=== PATIENT | female | born 1940 | race Caucasian/White ===

== ENCOUNTER → 2016-10-17 | Outpatient (REF) | payer MEDICARE | LOC: M SFHCLERA 14:20 | PROVIDERS: ATTEND Physician Assistant | DX: R30.0 Dysuria (principal) | CPT/HCPCS: 81002; 87088; 87186; G0463 ==

== ENCOUNTER → 2017-01-11 | Outpatient (CLI) | payer MEDICARE ==
--- NOTE | 2017-01-11 13:53 | REPMRS ---
Patient History The patient states she had a clinical breast exam in 03/28 Patient is postmenopausal. No known family history of cancer. Digital Woman Screen Mammo: January 11, 2017 - Exam #: [id number] Bilateral CC and MLO view(s) were taken. Technologist: Cindy Petersen, Technologist Prior study comparison: November 15, 2014, digital woman screen mammo performed at [facility] to [facility]. November 06, 2013, digital woman screen mammo performed at [facility] to [facility]. FINDINGS: There are scattered fibroglandular densities. There has been no change in the appearance of the mammogram from the prior studies. There is a mild amount of residual fibroglandular tissue which is fairly symmetric. There is no interval development of dominant mass, architectural distortion, or clustered microcalcification suggestive of malignancy. ASSESSMENT: BI-RADS/ACR category 1 mammogram. Negative. Recommendation Routine screening mammogram in 1 year (for women over age 40). This mammogram was interpreted with the aid of an FDA-approved computer-aided dectection system. Electronically Signed By: Michelet Gannon MD 01/11/17 3607
== END ==
LOC: M WHC 12:50
PROVIDERS: ATTEND Family Medicine
DX: Z12.31 Encounter for screening mammogram for malignant neoplasm of breast (principal); Z78.0 Asymptomatic menopausal state

== ENCOUNTER → 2017-03-08 | Outpatient (CLI) | payer MEDICARE ==
[2017-03-08 14:24] LABS: MEAN CORPUSCULAR HEMOGLOBIN 32.1 pg (27.0-33.0); MEAN CORPUSCULAR HGB CONC 33.3 g/dl (32.0-36.5); MEAN CORPUSCULAR VOLUME 96.4 fl (80.0-96.0); RED CELL DISTRIBUTION WIDTH 12.9 % (11.5-14.5); WHITE BLOOD COUNT 7.3 K/mm3 (4.0-10.0)
[2017-03-08 15:38] LABS: ALBUMIN 3.7 GM/DL (3.2-5.2); ALBUMIN/GLOBULIN RATIO 1.19 (1.00-1.93); ALKALINE PHOSPHATASE 74 U/L (45-117); ALT/SGPT 22 U/L (12-78); ANION GAP 4 MEQ/L (8-16); AST/SGOT 18 U/L (15-37); BILIRUBIN,TOTAL 0.3 MG/DL (0.2-1.0); BLOOD UREA NITROGEN 18 MG/DL (7-18); CALCIUM LEVEL 9.1 MG/DL (8.8-10.2); CARBON DIOXIDE LEVEL 28 MEQ/L (21-32); CHLORIDE LEVEL 109 MEQ/L (98-107); CREATININE FOR GFR 0.92 MG/DL (0.55-1.02); GLOMERULAR FILTRATION RATE > 60.0 (>39); GLUCOSE, FASTING 133 MG/DL (83-110); POTASSIUM SERUM 3.8 MEQ/L (3.5-5.1); SODIUM LEVEL 141 MEQ/L (136-145); TOTAL PROTEIN 6.8 GM/DL (6.4-8.2)
[2017-03-10 00:06] LABS: Lyme Disease IgG/IgM Antibodie <0.91 ISR (0.00-0.90); Lyme Disease IgM Ab Quantitati <0.80 index (0.00-0.79)
== END ==
LOC: M LAB 13:49
PROVIDERS: ATTEND Family Medicine
DX: D64.9 Anemia, unspecified (principal); R53.83 Other fatigue

== ENCOUNTER → 2017-03-23 | Outpatient (CLI) | payer MEDICARE ==
--- NOTE | 2017-03-23 17:20 | REP ---
Chest x-ray: Two views: History: Hypertension. Findings: Comparison radiographs are from 10/14/2015. The lungs are symmetrically aerated and free of infiltrate. Pleural angles are sharp. Cardiomediastinal silhouette is unremarkable and unchanged. The aorta is calcific and a little tortuous. Pulmonary vasculature is not increased. No significant bony abnormality is seen. There are two or three old healed rib fractures noted along the left posterolateral chest wall. Impression: No active disease. Signed by Sammy Chavez MD 03/24/2017 09:23 A
--- NOTE | 2017-03-23 23:16 | ECGEPIP ---
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 No significant change compared with 05/02/2015. Electronically Signed On 03-23-2017 23:16:12 EDT by Zechariah Lala
== END ==
LOC: M EKG 15:01
PROVIDERS: ATTEND Family Medicine
DX: I10 Essential (primary) hypertension (principal)

== ENCOUNTER → 2017-11-23 | Outpatient (REF) | payer MEDICARE, OTHER | LOC: M SFHCLERA 14:13 | DX: R39.9 Unspecified symptoms and signs involving the genitourinary system (principal) | CPT/HCPCS: 87086 ==

== ENCOUNTER → 2018-03-30 | Outpatient (REF) | payer MEDICARE ==
[2018-03-30 13:50] LABS: APPEARANCE, URINE HAZY (CLEAR); BACTERIA, URINE AUTO NEGATIVE (NEGATIVE); BILIRUBIN, URINE AUTO NEGATIVE (NEGATIVE); BLOOD, URINE BLOOD NEGATIVE (NEGATIVE); CALCIUM OXALATE CRYSTALS LARGE; COLOR, URINE YELLOW (YELLOW); GLUCOSE, URINE (UA) AUTO NEGATIVE (NEGATIVE); KETONE, URINE AUTO NEGATIVE (NEGATIVE); LEUKOCYTE ESTERASE, URINE AUTO NEGATIVE (NEGATIVE); MUCUS, URINE SMALL (NEGATIVE); NITRITE, URINE AUTO NEGATIVE (NEGATIVE); PROTEIN, URINE AUTO NEGATIVE (NEGATIVE); RBC, URINE AUTO 16 /HPF (0-3); SPECIFIC GRAVITY URINE AUTO 1.018 (1.002-1.035); SQUAMOUS EPITHELIAL CELL UR AU 0 /HPF (0-6); UROBILINOGEN, URINE AUTO 0.2 mg/dL (0.0-2.0); WBC, URINE AUTO 2 /HPF (0-3)
== END ==
LOC: M LAB REF 13:09
DX: N32.81 Overactive bladder (principal); R39.9 Unspecified symptoms and signs involving the genitourinary system
CPT/HCPCS: 81001

== ENCOUNTER → 2018-03-30 | Outpatient (CLI) | payer MEDICARE ==
[2018-03-30 07:37] LABS: HEMATOCRIT 41.7 % (36.0-47.0); HEMOGLOBIN 13.6 g/dl (12.0-15.5); MEAN CORPUSCULAR HEMOGLOBIN 31.2 pg (27.0-33.0); MEAN CORPUSCULAR HGB CONC 32.6 g/dl (32.0-36.5); MEAN CORPUSCULAR VOLUME 95.6 fl (80.0-96.0); PLATELET COUNT, AUTOMATED 353 10^3/uL (150-450); RED BLOOD COUNT 4.36 10^6/uL (4.00-5.40); RED CELL DISTRIBUTION WIDTH 12.5 % (11.5-14.5); WHITE BLOOD COUNT 7.7 10^3/uL (4.0-10.0)
[2018-03-30 08:10] LABS: ALBUMIN 3.6 GM/DL (3.2-5.2); ALBUMIN/GLOBULIN RATIO 1.09 (1.00-1.93); ALKALINE PHOSPHATASE 80 U/L (45-117); ALT/SGPT 20 U/L (12-78); ANION GAP 7 MEQ/L (8-16); AST/SGOT 16 U/L (7-37); BILIRUBIN,TOTAL 0.4 MG/DL (0.2-1.0); BLOOD UREA NITROGEN 15 MG/DL (7-18); CALCIUM LEVEL 8.8 MG/DL (8.8-10.2); CARBON DIOXIDE LEVEL 29 MEQ/L (21-32); CHLORIDE LEVEL 106 MEQ/L (98-107); CHOLESTEROL LEVEL 224 MG/DL (<200); CHOLESTEROL RISK RATIO 4.869 (<5); CREATININE FOR GFR 0.85 MG/DL (0.55-1.30); GLOMERULAR FILTRATION RATE > 60.0 (>39); GLUCOSE, FASTING 89 MG/DL (70-100); HDL CHOLESTEROL 46 MG/DL (>40); IRON (FE) 71 UG/DL (50-170); LDL CHOLESTEROL 147.2 MG/DL (<100); NON-HDL-C 178 MG/DL; PERCENT SATURATION 31.1 % (13.2-45.0); POTASSIUM SERUM 3.6 MEQ/L (3.5-5.1); SODIUM LEVEL 142 MEQ/L (136-145); THYROXINE (T4) 7.8 UG/DL (4.5-12.0); TOTAL IRON BINDING CAPACITY 228 UG/DL (250-450); TOTAL PROTEIN 6.9 GM/DL (6.4-8.2); TRIGLYCERIDES LEVEL 154 MG/DL (<150)
[2018-03-30 08:43] LABS: TOTAL 25(OH) VITAMIN D 66.8 NG/ML (30.0-100.0); TOTAL T3 81.2 NG/DL (60.0-181.0)
[2018-03-30 09:10] LABS: ESTIMATED AVERAGE GLUCOSE 117 MG/DL (60-110); HEMOGLOBIN A1c 5.7 %
== END ==
LOC: M LAB 06:54
DX: I10 Essential (primary) hypertension (principal); R53.83 Other fatigue; E03.9 Hypothyroidism, unspecified; Z79.899 Other long term (current) drug therapy
CPT/HCPCS: 83550

== ENCOUNTER → 2018-07-25 | Outpatient (REF) | payer MEDICARE, OTHER | LOC: M SFHCLERA 18:18 | DX: R30.0 Dysuria (principal) | CPT/HCPCS: 87186 ==

== ENCOUNTER → 2018-11-07 | Outpatient (CLI) | payer MEDICARE ==
--- NOTE | 2018-11-08 08:08 | REPMRS ---
Patient History The patient states she has not had a clinical breast exam in over a year. No known family history of cancer. Digital Woman Screen Mammo: November 07, 2018 - Exam #: [id number] Bilateral CC and MLO view(s) were taken. Technologist: Cindy Petersen, Technologist Prior study comparison: January 11, 2017, digital woman screen mammo performed at [facility]. November 15, 2014, digital woman screen mammo performed at [facility]. November 06, 2013, digital woman screen mammo performed at [facility]. FINDINGS: There are scattered fibroglandular densities. There has been no change in the appearance of the mammogram from the prior studies. There is a mild amount of scattered fibroglandular density which is fairly symmetric. There is no interval development of dominant mass, architectural distortion, or clustered microcalcification suggestive of malignancy. 3-D tomosynthesis shows no additional findings. Assessment: BI-RADS/ACR category 1 mammogram. Negative Mammogram. Recommendation Routine screening mammogram of both breasts in 1 year (for women over age 40). This patient's Lifetime Breast Cancer RIsk is estimated at 3.1 %. This mammogram was interpreted with the aid of an FDA-approved computer-aided dectection system. Electronically Signed By: Javier Chavez MD 11/08/18 0808
== END ==
LOC: M WHC 09:15
PROVIDERS: ATTEND Family Medicine
DX: Z12.31 Encounter for screening mammogram for malignant neoplasm of breast (principal)

== ENCOUNTER → 2019-10-09 | Outpatient (REF) | payer MEDICARE ==
[2019-10-09 19:32] LABS: APPEARANCE, URINE CLEAR (CLEAR); BACTERIA, URINE AUTO NEGATIVE (NEGATIVE); BILIRUBIN, URINE AUTO NEGATIVE (NEGATIVE); BLOOD, URINE BLOOD NEGATIVE (NEGATIVE); COLOR, URINE YELLOW (YELLOW); GLUCOSE, URINE (UA) AUTO NEGATIVE (NEGATIVE); KETONE, URINE AUTO NEGATIVE (NEGATIVE); LEUKOCYTE ESTERASE, URINE AUTO NEGATIVE (NEGATIVE); MUCUS, URINE SMALL (NEGATIVE); NITRITE, URINE AUTO NEGATIVE (NEGATIVE); PROTEIN, URINE AUTO NEGATIVE (NEGATIVE); RBC, URINE AUTO 8 /HPF (0-3); SPECIFIC GRAVITY URINE AUTO 1.018 (1.002-1.035); SQUAMOUS EPITHELIAL CELL UR AU 0 /HPF (0-6); URIC ACID CRYSTALS SMALL; UROBILINOGEN, URINE AUTO 0.2 mg/dL (0.0-2.0); WBC, URINE AUTO 1 /HPF (0-3)
== END ==
LOC: M LAB REF 17:16
PROVIDERS: ATTEND Obstetrics & Gynecology
DX: N81.11 Cystocele, midline (principal)

== ENCOUNTER → 2019-12-19 | Outpatient (CLI) | payer MEDICARE ==
[2019-12-19 09:36] LABS: HEMATOCRIT 42.5 % (36.0-47.0); HEMOGLOBIN 13.6 g/dl (12.0-15.5); MEAN CORPUSCULAR HEMOGLOBIN 30.5 pg (27.0-33.0); MEAN CORPUSCULAR VOLUME 95.3 fl (80.0-96.0); PLATELET COUNT, AUTOMATED 366 10^3/uL (150-450); RED BLOOD COUNT 4.46 10^6/uL (4.00-5.40); WHITE BLOOD COUNT 7.8 10^3/uL (4.0-10.0)
[2019-12-19 09:47] LABS: INR 1.1; PROTHROMBIN TIME 13.9 SECONDS (11.8-14.0)
[2019-12-19 10:25] LABS: HEMOGLOBIN A1c 5.5 %
[2019-12-19 10:30] LABS: ALBUMIN 4.1 GM/DL (3.2-5.2); ALT/SGPT 20 U/L (12-78); BILIRUBIN,TOTAL 0.4 MG/DL (0.2-1.0); BLOOD UREA NITROGEN 18 MG/DL (7-18); CALCIUM LEVEL 9.7 MG/DL (8.8-10.2); CARBON DIOXIDE LEVEL 31 MEQ/L (21-32); CHLORIDE LEVEL 107 MEQ/L (98-107); CHOLESTEROL LEVEL 269 MG/DL (<200); CREATININE FOR GFR 0.89 MG/DL (0.55-1.30); GLOMERULAR FILTRATION RATE > 60.0 (>39); GLUCOSE, FASTING 100 MG/DL (70-100); HDL CHOLESTEROL 41 MG/DL (>40); LDL CHOLESTEROL 191 MG/DL (<100); NON-HDL-C 228 MG/DL; POTASSIUM SERUM 4.2 MEQ/L (3.5-5.1); SODIUM LEVEL 139 MEQ/L (136-145); THYROID STIMULATING HORMONE 0.574 uIU/ML (0.358-3.740); TOTAL PROTEIN 7.5 GM/DL (6.4-8.2); TRIGLYCERIDES LEVEL 185 MG/DL (<150)
--- NOTE | 2019-12-19 10:31 | ECGEPIP ---
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 No significant change from 04/05/19. Electronically Signed on 12-19-2019 10:31:00 EDT by Dario Loving
--- NOTE | 2019-12-19 10:34 | REP ---
CHEST, TWO VIEWS: Two views of the chest are performed and compared to a prior study of 04/05/2019. There is no acute infiltrate. There is mild bibasilar fibroatelectatic change. Heart is normal in size. There is mild calcification and tortuosity of the thoracic aorta. Mediastinal silhouette is unchanged. IMPRESSION: No active pulmonary disease. Electronically Signed by Michelet Gannon MD 12/19/2019 10:38 A
== END ==
LOC: M LAB 09:09
PROVIDERS: ATTEND Family Medicine
DX: Z01.818 Encounter for other preprocedural examination (principal); I10 Essential (primary) hypertension

== ENCOUNTER → 2020-01-15 | Outpatient (CLI) | payer MEDICARE ==
[~2020-01-15] MED LIST: ACET-839 PO; ALEV220T22 PO; CALC600T36 PO; EFFE150C2 PO; LEVO88TA3 PO; MULTCAP PO; OMEP1CAP73 PO; OSTE5TAB PO; VALS1TAB66 PO
== END ==
LOC: M LABSMTC 11:46
PROVIDERS: ATTEND Anesthesiology
DX: Z11.59 Encounter for screening for other viral diseases (principal)

== ENCOUNTER → 2020-01-15 | Outpatient (CLI) | payer MEDICARE ==
--- NOTE | 2020-01-15 15:05 | REP ---
PELVIC SONOGRAPHY: HISTORY: Urinary frequency. Midline cystocele. SONOGRAPHIC FINDINGS: Transabdominal and transvaginal scanning are performed. Uterine dimensions are normal measured at 6.1 x 2.4 x 3.3 cm. Endometrial echo 0.4 cm in thickness. No focal uterine mass is seen. There is some uterine myometrial calcification consistent with fibroid change. No free fluid is seen. The right ovary is surgically absent. The left ovary could not be visualized either transabdominally or transvaginally. No left adnexal mass is seen. No free fluid is noted. Visualized bladder suarez are smooth. No extra vesicle lesion is seen. IMPRESSION: Calcifications in the uterine myometrium consistent with some fibroid change. Status post right oophorectomy. Left ovary not directly visualized. Electronically Signed by Sammy Chavez MD 01/15/2020 03:23 P
== END ==
LOC: M LRY 13:29
PROVIDERS: ATTEND Obstetrics & Gynecology
DX: N81.11 Cystocele, midline (principal); Z90.721 Acquired absence of ovaries, unilateral

== ENCOUNTER 2020-01-18 06:04 | Day surgery (SDC) | payer MEDICARE ==
[~2020-01-18] VITALS: Ht 152.4 cm; Wt 60.2 kg
[2020-01-18 06:58] LABS: HEMATOCRIT 43.4 % (36.0-47.0); MEAN CORPUSCULAR HEMOGLOBIN 30.4 pg (27.0-33.0); MEAN CORPUSCULAR HGB CONC 32.3 g/dl (32.0-36.5); MEAN CORPUSCULAR VOLUME 94.1 fl (80.0-96.0); PLATELET COUNT, AUTOMATED 385 10^3/uL (150-450); RED BLOOD COUNT 4.61 10^6/uL (4.00-5.40); WHITE BLOOD COUNT 9.1 10^3/uL (4.0-10.0)
[2020-01-18] MEDS ORDERED: ceFAZolin SOD 2 GM in IV 1 EA IV ONE (07:00)
[2020-01-18] MEDS ORDERED: LR 1,000 ML IV ONE (07:00)
[2020-01-18] MEDS ORDERED: VASOPRESSIN INJ 20 UNITS/ML VIAL As Ordered ONE (07:14)
[2020-01-18] MEDS ORDERED: propofoL 200 MG/20 ML VIAL As Ordered ONE (07:18)
[2020-01-18] MEDS ORDERED: MIDAZOLAM INJ 2MG/2ML VIAL (J2250 PER 1MG) As Ordered ONE (07:18)
[2020-01-18] MEDS ORDERED: ROCURONIUM BROMIDE 50 MG/5 ML VIAL As Ordered ONE (07:18)
[2020-01-18] MEDS ORDERED: LIDOCAINE 2% 100MG/5ML SDV (FOR ANES.) As Ordered ONE (07:18)
[2020-01-18] MEDS ORDERED: fentaNYL 100 MCG/2 ML INJECTION (J3010) As Ordered ONE (07:19)
[2020-01-18] MEDS ORDERED: KETOROLAC 60 MG/2 ML VIAL As Ordered ONE (08:12)
[2020-01-18] MEDS ORDERED: ACETAMINOPHEN 1000MG 100ML IV BTL (OFIRMEV) (J0131 PER 10MG) As Ordered ONE (08:12)
[2020-01-18] MEDS ORDERED: dexameTHASONE 4 MG/ML 1ML VIAL (J1100 PER 1MG) As Ordered ONE (08:12)
[2020-01-18] MEDS ORDERED: ONDANSETRON 4MG/2ML VIAL As Ordered ONE (08:12)
[2020-01-18] MEDS ORDERED: SUCCINYLCHOLINE 100 MG/5 ML SYRINGE (J0330) As Ordered ONE (08:14)
[2020-01-18] MEDS ORDERED: SUGAMMADEX SODIUM 500 MG/5 ML VIAL (BRIDION) As Ordered ONE (09:06)
[2020-01-18] MEDS ORDERED: LR 1,000 ML IV SCH ×2 (10:00)
[2020-01-18] MEDS ORDERED: fentaNYL 100 MCG/2 ML INJECTION (J3010) IV PRN (10:00)
[2020-01-18] MEDS ORDERED: NORCO, ANEXSIA 5/325MG TABLET (HYDROcodone/ACETAMINOPHEN) PO PRN (10:00)
[2020-01-18] MEDS ORDERED: oxyCODONE 5MG TAB PO PRN (10:00)
[2020-01-18] MEDS ORDERED: IBUPROFEN 600 MG TAB PO PRN (10:00)
[2020-01-18] MEDS ORDERED: ONDANSETRON 4MG/2ML VIAL IV PRN (10:00)
[2020-01-18 12:20] VITALS: BP 153/70
--- NOTE | 2020-01-21 12:33 | RO ---
DATE OF SURGERY: 01/18/2020 PREOPERATIVE DIAGNOSES AND INDICATION FOR SURGERY: Symptomatic prolapse, failed pessary, stress urinary incontinence (CEDRIC), and intrinsic sphincter deficiency (ISD). POSTOPERATIVE DIAGNOSES: Symptomatic prolapse, failed pessary, stress urinary incontinence (CEDRIC), and intrinsic sphincter deficiency (ISD). PROCEDURE: LeFort colpocleisis, Desara midurethral sling, and cysto. SURGEON: Noa Ramírez MD CONVEYOR TECHNICIAN: None. ANESTHESIA: General endotracheal anesthesia. BRIEF DESCRIPTION OF PROCEDURE AND FINDINGS: Tameka was brought to the operating room, where sufficient general endotracheal anesthesia was induced. She was prepped, draped, and positioned in the usual sterile fashion. Of course, the pessary was removed before the prep. The bladder was emptied, and attention was turned to the vaginal tissue. She had more anterior prolapse than posterior, as expected. The patient was aware of this preoperatively. We used Allis clamps to grasp the superior vagina to point anteriorly and to point posteriorly and injected with diluted vasopressin and then dissected out a squared-off peninsula of tissues starting anteriorly across the top about 1 cm caudad from the cervix and then working vertically down the lateral vaginal sulci with the vaginal tissues, and then a similar rectangular area of tissue was removed posteriorly, of course, leaving those attached as we got towards the hymen level. We then, of course, labeled the apices and sewed across the top so that both sutures were placed into the patient's right side and as a left-handed surgery, I sewed one across to the patient's left side and kept the other on the patient's right side; and then when we had the tissues dissected and those two stitches in, we used Allises to reapproximate and sort of set the plane for our transverse dissection of those tissues so that more or less rectangular area of tissue was removed; and then we sewed down the sides but then stopped short of the closure so that we could place the Desara. We dissected out the trocar path laterally with the catheter in to protect the urethra and, of course, with the anatomical landmarks marked, and we then placed first the right side and then the left side trocar and did cystoscopy in between each placement to confirm normal placement. We had done a minor cystocele to sort of repair anteriorly to get those tissues to line up with the posterior tissues to reduce the size anteriorly to line up; and so while we were scoping, we could see that we had some reasonable support anteriorly, as well, and there was normal ureteral jets, etc. There was no injury to the bladder from the trocar, and we went ahead and did the left side; and again, we were able to confirm absence of injury and empty the bladder again and then went ahead and brought up the Desara around the #8 Hegar and the red rubber shod catheter over the stylet in the urethra spacers and brought those up slightly more snug than typical based on the patient's ISD but, of course, still leaving both those spacers in place; and then we removed the sheath and trimmed off the mesh, etc., closed the suprapubic wounds, and then closed the rest of the vaginal wound using 3-0 Vicryl on the suprapubic skin and 2-0 Vicryl in the vaginal as we had been using all along; and with the vaginal wound completely closed, the procedure was ended. Estimated blood loss for the procedure about 30 mL. Fluid replacement was crystalloid. COMPLICATIONS: None. CONDITION AND DISPOSITION: Tameka tolerated the procedure well and was recovering in the recovery room in good condition.
== END 2020-01-18 12:30 | disposition home or self-care (01) ==
LOC: M SDC 06:04
PROVIDERS: ATTEND Obstetrics & Gynecology
DX: N81.4 Uterovaginal prolapse, unspecified (principal); N39.3 Stress incontinence (female) (male); N36.42 Intrinsic sphincter deficiency (ISD); E03.9 Hypothyroidism, unspecified; I10 Essential (primary) hypertension; F41.9 Anxiety disorder, unspecified; Z79.899 Other long term (current) drug therapy; Z88.2 Allergy status to sulfonamides
CPT/HCPCS: 36415; 57120; 57288; 85027; 86850; 86900; 86901; 88302; C1771; J0131; J0330; J0690; J1100; J1885; J2250; J2405; J3010

== ENCOUNTER → 2020-11-15 | Outpatient (CLI) | payer MEDICARE ==
--- NOTE | 2020-11-15 09:52 | REPMRS ---
Patient History The patient states she has not had a clinical breast exam in over a year. Patient is postmenopausal. No known family history of cancer. No Hormone Replacement Therapy 3D TOMOSYNTHESIS WAS PERFORMED. [facility] for [facility] 2.[facility]%. Volpara breast density b. Digital Woman Screen Mammo: November 15, 2020 - Exam #: [id number] Bilateral CC and MLO view(s) were taken. Technologist: Nola Dockery, Technologist Prior study comparison: November 07, 2018, bilateral digital woman screen mammo performed at [facility]. January 11, 2017, digital woman screen mammo performed at [facility]. FINDINGS: There are scattered fibroglandular densities. There has been no change in the appearance of the mammogram from the prior studies. There is a mild amount of residual fibroglandular tissue which is fairly symmetric. There is no interval development of dominant mass, architectural distortion, or clustered microcalcification suggestive of malignancy. Assessment: BI-RADS/ACR category 1 mammogram. Negative Mammogram. Recommendation Routine screening mammogram in 1 year (for women over age 40). This mammogram was interpreted with the aid of an FDA-approved computer-aided dectection system. Electronically Signed By: Michelet Gannon MD 11/15/20 0952
== END ==
LOC: M WHC 08:53
PROVIDERS: ATTEND Family Medicine
DX: Z12.31 Encounter for screening mammogram for malignant neoplasm of breast (principal)

== ENCOUNTER → 2021-01-29 | Outpatient (CLI) | payer MEDICARE ==
--- NOTE | 2021-01-29 13:18 | REP ---
INDICATION: DDD LUMBAR REGION ? HNP / STENOSIS. COMPARISON: Comparison lumbar spine radiographs are from September 19, 2015.. TECHNIQUE: Sagittal and axial T1 and T2-weighted scans are acquired in the usual fashion with and without fat saturation. Sequences include spin echo, turbo spin-echo, and STIR imaging sequences. FINDINGS: Lumbar vertebral body heights are preserved. Cortical and medullary bone signal intensity are normal. No bony destructive lesion is seen. Tip of the conus medullaris is normal in position and appearance at L1. There is a 2.2 cm cyst in the mid position of the left kidney. Normal caliber aorta. At T12-L1, there is a broad-based central disc protrusion which extends caudally 2-3 mm. This indents the ventral margin of the thecal sac but does not compress the conus. There is some degenerative narrowing of the T 12 L1 disc. At L1-L2, axial and sagittal images demonstrate minimal disc bulging. No central canal stenosis or foraminal narrowing is seen. At L2-L3, there is degenerative narrowing and desiccation in the disc. There is diffuse posterior disc bulging and some associated osteophytic ridging indenting the ventral margin of the thecal sac. No spinal stenosis is seen. No foraminal encroachment is appreciated. At L3-4, there is no disc abnormality. No spinal stenosis or foraminal narrowing is seen. At L4-5, there is mild degenerative narrowing of the disc margin. There is osteoarthritic facet hypertrophy moderate in degree bilaterally at L4-5 and there is a grade 1 4 mm L4-5 spondylolisthesis. No nerve root compression is appreciated. No spinal stenosis is seen. No focal disc protrusion. At L5-S1, there is a central focal disc protrusion indenting the ventral margin of the thecal sac. No spinal stenosis is seen. There is diffuse bulging of the remainder of the disc margin and some discogenic spurring is seen bilaterally which in combination with facet hypertrophy produces mild bilateral L5-S1 neural foraminal narrowing. There is a perineural cyst in the mid sacral canal noted incidentally. IMPRESSION: Degenerative disc and degenerative spondylosis changes. This is most pronounced at L4-5 where there is a degenerative grade 1 4 mm L4-5 spondylolisthesis. Moderate to advanced bilateral L4-5 facet arthropathy is seen. There is a central disc protrusion at L5-S1 and bilateral neural foraminal narrowing is observed at L5-S1 due to facet hypertrophy and discogenic spurring. <Electronically signed by Javier Chavez > 01/29/21 [id number]
== END ==
LOC: M PLARAD 10:03
PROVIDERS: ATTEND Physician Assistant
DX: M51.36 Other intervertebral disc degeneration, lumbar region (principal); M51.27 Other intervertebral disc displacement, lumbosacral region

== ENCOUNTER → 2021-03-10 | Outpatient (CLI) | payer MEDICARE ==
[2021-03-10 10:05] LABS: HEMATOCRIT 42.2 % (36.0-47.0); HEMOGLOBIN 13.5 g/dl (12.0-15.5); MEAN CORPUSCULAR HEMOGLOBIN 30.8 pg (27.0-33.0); MEAN CORPUSCULAR VOLUME 96.3 fl (80.0-96.0); PLATELET COUNT, AUTOMATED 374 10^3/uL (150-450); RED BLOOD COUNT 4.38 10^6/uL (4.00-5.40); WHITE BLOOD COUNT 9.2 10^3/uL (4.0-10.0)
[2021-03-10 10:40] LABS: ALBUMIN 3.9 GM/DL (3.2-5.2); ALT/SGPT 20 U/L (12-78); BILIRUBIN,TOTAL 0.3 MG/DL (0.2-1.0); BLOOD UREA NITROGEN 15 MG/DL (7-18); CALCIUM LEVEL 9.4 MG/DL (8.8-10.2); CARBON DIOXIDE LEVEL 31 MEQ/L (21-32); CHLORIDE LEVEL 104 MEQ/L (98-107); CHOLESTEROL LEVEL 264 MG/DL (<200); CREATININE FOR GFR 0.81 MG/DL (0.55-1.30); GLOMERULAR FILTRATION RATE > 60.0 (>39); GLUCOSE, FASTING 90 MG/DL (70-100); HDL CHOLESTEROL 44 MG/DL (>40); LDL CHOLESTEROL 177 MG/DL (<100); NON-HDL-C 220 MG/DL; POTASSIUM SERUM 3.8 MEQ/L (3.5-5.1); SODIUM LEVEL 139 MEQ/L (136-145); THYROXINE (T4) 8.3 UG/DL (4.5-12.0); TOTAL 25(OH) VITAMIN D 48.7 NG/ML (30.0-100.0); TOTAL PROTEIN 7.2 GM/DL (6.4-8.2); TRIGLYCERIDES LEVEL 217 MG/DL (<150)
[2021-03-10 11:21] LABS: HEMOGLOBIN A1c 5.5 %
== END ==
LOC: M LAB 08:50
PROVIDERS: ATTEND Family Medicine
DX: R53.83 Other fatigue (principal); I10 Essential (primary) hypertension; E03.9 Hypothyroidism, unspecified; Z79.899 Other long term (current) drug therapy

== ENCOUNTER → 2021-05-23 | Outpatient (CLI) | payer MEDICARE ==
[~2021-05-23] MED LIST changes: +CALC600T61 PO; +CVS1CAP2 PO; +METO1TAB87 PO; +OMEG350C PO; +VITMTA PO
== END ==
LOC: M LABSMTC 11:36
PROVIDERS: ATTEND Anesthesiology
DX: Z01.812 Encounter for preprocedural laboratory examination (principal); Z20.822 Contact with and (suspected) exposure to COVID-19

== ENCOUNTER 2021-05-28 09:25 | Day surgery (SDC) | payer MEDICARE ==
[~2021-05-28] VITALS: Ht 154.9 cm; Wt 59.0 kg
[~2021-05-28 09:25] MED LIST changes: +NS 1,000 ML IV SCH
[2021-05-28] MEDS ORDERED: propofoL 200 MG/20 ML VIAL As Ordered ONE (10:50)
--- NOTE | 2021-05-28 11:11 | ROOR ---
Patient Name: Tameka Del Rosario Procedure Date: 05/28/2021 10:45 AM Date of : 1940 Age: 81 [facility] Gender: Female Note Status: Finalized Procedure: Colonoscopy Indications: Change in bowel habits Providers: DO Jayro Workman MD: KLEBER TERRY MD Requesting Provider: Medicines: Propofol per Anesthesia Complications: No immediate complications. Procedure: Pre-Anesthesia Assessment: - Prior to the procedure, a History and Physical was performed, and patient medications and allergies were reviewed. The patient is competent. The risks and benefits of the procedure and the sedation options and risks were discussed with the patient. All questions were answered and informed consent was obtained. Patient identification and proposed procedure were verified by the physician, the nurse, the anesthesiologist and the exhibit technician in the endoscopy suite. Mental Status Examination: alert and oriented. Airway Examination: normal oropharyngeal airway and neck mobility. Respiratory Examination: clear to auscultation. CV Examination: normal. Prophylactic Antibiotics: The patient does not require prophylactic antibiotics. Prior Anticoagulants: The patient has taken no previous anticoagulant or antiplatelet agents. ASA Grade Assessment: II - A patient with mild systemic disease. After reviewing the risks and benefits, the patient was deemed in satisfactory condition to undergo the procedure. The anesthesia plan was to use monitored anesthesia care (MAC). Immediately prior to administration of medications, the patient was re-assessed for adequacy to receive sedatives. The heart rate, respiratory rate, oxygen saturations, blood pressure, adequacy of pulmonary ventilation, and response to care were monitored throughout the procedure. The physical status of the patient was re-assessed after the procedure. The Colonoscope was introduced through the anus and advanced to the cecum, identified by appendiceal orifice and ileocecal valve. The colonoscopy was performed without difficulty. The patient tolerated the procedure well. Findings: Multiple small-mouthed diverticula were found in the sigmoid colon. Two carpet-like polyps were found in the cecum. The polyps were 6 to 15 mm in size. These polyps were removed with a hot snare. Resection and retrieval were complete. Estimated blood loss was minimal. Impression: - Diverticulosis in the sigmoid colon. - Two 6 to 15 mm polyps in the cecum, removed with a hot snare. Resected and retrieved. Recommendation: - Patient has a contact number available for emergencies. The signs and symptoms of potential delayed complications were discussed with the patient. Return to normal activities tomorrow. Written discharge instructions were provided to the patient. - Repeat colonoscopy in 3 - 5 years for surveillance based on pathology results. - Await pathology results. - Return to my office at appointment to be scheduled. Procedure Code(s): --- Professional --- 73514, Colonoscopy, flexible; with removal of tumor(s), polyp(s), or other lesion(s) by snare technique Diagnosis Code(s): --- Professional --- K63.5, Polyp of colon R19.4, Change in bowel habit K57.30, Diverticulosis of large intestine without perforation or abscess without bleeding CPT copyright 2019 [employer]. All rights reserved. The codes documented in this report are preliminary and upon lsw review may be revised to meet current compliance requirements. Michelet Phan DO 05/28/2021 11:11:31 AM Electronically signed by Michelet Phan DO Number of Addenda: 0 Note Initiated On: 05/28/2021 10:45 AM Estimated Blood Loss: Estimated blood loss was minimal.
[2021-05-28 11:30] VITALS: BP 147/70
== END 2021-05-28 11:32 | disposition home or self-care (01) ==
LOC: M OPP 09:25
PROVIDERS: ATTEND Surgery
DX: R19.4 Change in bowel habit (principal); D12.0 Benign neoplasm of cecum; K57.30 Diverticulosis of large intestine without perforation or abscess without bleeding; I10 Essential (primary) hypertension; E03.9 Hypothyroidism, unspecified; K21.9 Gastro-esophageal reflux disease without esophagitis; M19.90 Unspecified osteoarthritis, unspecified site; F41.9 Anxiety disorder, unspecified; F32.9 Major depressive disorder, single episode, unspecified; Z88.2 Allergy status to sulfonamides; Z79.899 Other long term (current) drug therapy

== ENCOUNTER → 2021-07-07 | Outpatient (REF) | payer MEDICARE ==
[~2021-07-07] MED LIST changes: -NS 1,000 ML IV SCH
[2021-07-07 11:32] LABS: PLATELET COUNT, AUTOMATED 350 10^3/uL (150-450)
[2021-07-07 11:41] LABS: INR 1.03; PROTHROMBIN TIME 13.9 SECONDS (12.7-14.5)
[2021-07-07 11:42] LABS: PARTIAL THROMBOPLASTIN TIME 39.3 SECONDS (25.9-37.0)
[2021-07-07 11:43] LABS: COLLAGEN EPINEPHRINE 168 SECONDS (74-162)
[2021-07-07 12:13] LABS: COLLAGEN ADP 124 SECONDS (56-103)
== END ==
LOC: M LAB REF 11:16
PROVIDERS: ATTEND Physical Medicine & Rehabilitation
DX: M51.36 Other intervertebral disc degeneration, lumbar region (principal)

== ENCOUNTER → 2021-07-11 | Outpatient (CLI) | payer MEDICARE ==
[2021-07-11 16:32] LABS: COLLAGEN EPINEPHRINE 179 SECONDS (74-162)
[2021-07-11 16:56] LABS: COLLAGEN ADP 118 SECONDS (56-103)
== END ==
LOC: M LAB 15:41
PROVIDERS: ATTEND Physical Medicine & Rehabilitation
DX: Z01.812 Encounter for preprocedural laboratory examination (principal)

== ENCOUNTER → 2021-07-23 | Outpatient (CLI) | payer MEDICARE ==
[2021-07-23 11:39] LABS: HEMATOCRIT 38.5 % (36.0-47.0); HEMOGLOBIN 12.5 g/dl (12.0-15.5); MEAN CORPUSCULAR HGB CONC 32.5 g/dl (32.0-36.5); MEAN CORPUSCULAR VOLUME 95.5 fl (80.0-96.0); PLATELET COUNT, AUTOMATED 370 10^3/uL (150-450); RED BLOOD COUNT 4.03 10^6/uL (4.00-5.40); WHITE BLOOD COUNT 7.4 10^3/uL (4.0-10.0)
[2021-07-23 11:57] LABS: INR 1.04
[2021-07-23 11:58] LABS: PARTIAL THROMBOPLASTIN TIME 38.9 SECONDS (25.9-37.0)
[2021-07-23 12:15] LABS: ALBUMIN 3.4 GM/DL (3.2-5.2); BILIRUBIN,TOTAL 0.3 MG/DL (0.2-1.0); CALCIUM LEVEL 9.5 MG/DL (8.8-10.2); CHOLESTEROL RISK RATIO 7.388 (<5); CREATININE FOR GFR 0.99 MG/DL (0.55-1.30); GLOMERULAR FILTRATION RATE 57.6 (>39); POTASSIUM SERUM 4.5 MEQ/L (3.5-5.1); THYROID STIMULATING HORMONE 0.891 uIU/ML (0.358-3.740); TOTAL 25(OH) VITAMIN D 47.3 NG/ML (30.0-100.0); TOTAL PROTEIN 6.9 GM/DL (6.4-8.2)
== END ==
LOC: M LAB 10:54
PROVIDERS: ATTEND Family Medicine
DX: D64.9 Anemia, unspecified (principal); R53.83 Other fatigue; E03.9 Hypothyroidism, unspecified

== ENCOUNTER 2021-08-11 07:21 | Outpatient (CLI) | payer MEDICARE ==
[~2021-08-11] VITALS: Ht 154.9 cm; Wt 59.1 kg
[~2021-08-11 07:21] MED LIST changes: +ALBUTEROL 90 MCG/ACT 8GM HFA INHALER INH PRN; +ALBUTEROL SULFATE 2.5 MG/0.5 ML INH NEB SOLN INH PRN; +EPINEPHrine INJ 1 MG/ML 1ML AMP IM PRN; +NS 1,000 ML IV SCH; +diphenhydrAMINE 50MG/ML VIAL (J1200) IV PRN; +methylPREDNISolone 125MG 2ML VIAL IV PRN
[2021-08-11] MEDS ORDERED: CASIRIVIMAB (REGN10933) 600 MG, IMDEVIMAB (REGN10987) 600 MG in NS 250 ML IV ONE (07:30)
[2021-08-11 08:15] VITALS: BP 162/74
[2021-08-11 08:45] VITALS: BP 152/74
[2021-08-11 09:15] VITALS: BP 153/71
[2021-08-11 10:15] VITALS: BP 166/70
== END 2021-08-11 10:15 | disposition home or self-care (01) ==
LOC: M OPCLI4PR 07:21
PROVIDERS: ATTEND Physician Assistant
DX: U07.1 COVID-19 (principal); Z88.2 Allergy status to sulfonamides

== ENCOUNTER → 2021-10-13 | Outpatient (CLI) | payer MEDICARE ==
[~2021-10-13] MED LIST changes: -ALBUTEROL 90 MCG/ACT 8GM HFA INHALER INH PRN; -ALBUTEROL SULFATE 2.5 MG/0.5 ML INH NEB SOLN INH PRN; -EPINEPHrine INJ 1 MG/ML 1ML AMP IM PRN; -NS 1,000 ML IV SCH; -diphenhydrAMINE 50MG/ML VIAL (J1200) IV PRN; -methylPREDNISolone 125MG 2ML VIAL IV PRN
[2021-10-13 09:12] LABS: PLATELET COUNT, AUTOMATED 343 10^3/uL (150-450)
[2021-10-13 09:23] LABS: INR 0.99; PROTHROMBIN TIME 13.5 SECONDS (12.7-14.5)
[2021-10-13 09:24] LABS: PARTIAL THROMBOPLASTIN TIME 33.7 SECONDS (25.9-37.0)
[2021-10-13 09:27] LABS: COLLAGEN EPINEPHRINE 138 SECONDS (74-162)
== END ==
LOC: M LAB 08:36
PROVIDERS: ATTEND Physical Medicine & Rehabilitation
DX: M51.36 Other intervertebral disc degeneration, lumbar region (principal); Z51.81 Encounter for therapeutic drug level monitoring; Z79.899 Other long term (current) drug therapy

== ENCOUNTER → 2022-01-15 | Outpatient (CLI) | payer MEDICARE ==
[~2022-01-15] MED LIST changes: +ISOVUE-300 61% 50ML VIAL As Ordered ONE; +LIDOCAINE 1% MDV 20ML VIAL As Ordered ONE; +TRIAMCINOLONE ACETONIDE SUSP 40 MG/ML VIAL (J3301) As Ordered ONE
== END ==
LOC: M RADPRO 10:43
PROVIDERS: ATTEND Orthopaedic Surgery
DX: M16.11 Unilateral primary osteoarthritis, right hip (principal)
CPT/HCPCS: 20610; 77002; J3301; Q9967

== ENCOUNTER → 2022-03-18 | Outpatient (CLI) | payer MEDICARE ==
[~2022-03-18] MED LIST changes: -ISOVUE-300 61% 50ML VIAL As Ordered ONE; -LIDOCAINE 1% MDV 20ML VIAL As Ordered ONE; -TRIAMCINOLONE ACETONIDE SUSP 40 MG/ML VIAL (J3301) As Ordered ONE
[2022-03-18 10:09] LABS: HEMATOCRIT 40.2 % (36.0-47.0); HEMOGLOBIN 12.7 g/dl (12.0-15.5); MEAN CORPUSCULAR HEMOGLOBIN 31.5 pg (27.0-33.0); MEAN CORPUSCULAR HGB CONC 31.6 g/dl (32.0-36.5); MEAN CORPUSCULAR VOLUME 99.8 fl (80.0-96.0); PLATELET COUNT, AUTOMATED 348 10^3/uL (150-450); RED BLOOD COUNT 4.03 10^6/uL (4.00-5.40); WHITE BLOOD COUNT 10.7 10^3/uL (4.0-10.0)
[2022-03-18 10:35] LABS: HEMOGLOBIN A1c 5.6 %
[2022-03-18 10:56] LABS: ALBUMIN 3.7 GM/DL (3.2-5.2); ALT/SGPT 22 U/L (12-78); BILIRUBIN,TOTAL 0.5 MG/DL (0.2-1.0); BLOOD UREA NITROGEN 17 MG/DL (7-18); CALCIUM LEVEL 9.4 MG/DL (8.8-10.2); CARBON DIOXIDE LEVEL 29 MEQ/L (21-32); CHLORIDE LEVEL 106 MEQ/L (98-107); CHOLESTEROL LEVEL 162 MG/DL (<200); CHOLESTEROL RISK RATIO 3.446 (<5); CREATININE FOR GFR 0.88 MG/DL (0.55-1.30); GLOMERULAR FILTRATION RATE > 60.0 (>39); GLUCOSE, FASTING 93 MG/DL (70-100); HDL CHOLESTEROL 47 MG/DL (>40); LDL CHOLESTEROL 81 MG/DL (<100); NON-HDL-C 115 MG/DL; SODIUM LEVEL 140 MEQ/L (136-145); THYROID STIMULATING HORMONE 0.764 uIU/ML (0.358-3.740); TOTAL PROTEIN 6.8 GM/DL (6.4-8.2); TRIGLYCERIDES LEVEL 168 MG/DL (<150)
[2022-03-18 10:59] LABS: TOTAL 25(OH) VITAMIN D 54.3 NG/ML (30.0-100.0)
== END ==
LOC: M LAB 09:14
PROVIDERS: ATTEND Family Medicine
DX: I10 Essential (primary) hypertension (principal); R53.83 Other fatigue; F03.90 Unspecified dementia, unspecified severity, without behavioral disturbance, psychotic disturbance, mood disturbance, and anxiety; Z79.899 Other long term (current) drug therapy

== ENCOUNTER → 2023-02-04 | Outpatient (CLI) | payer MEDICARE | LOC: M WHC 13:49 | PROVIDERS: ATTEND Family Medicine | DX: Z12.31 Encounter for screening mammogram for malignant neoplasm of breast (principal) ==

== ENCOUNTER → 2023-03-23 | Outpatient (CLI) | payer MEDICARE ==
[2023-03-23 10:25] LABS: HEMATOCRIT 41.1 % (36.0-47.0); HEMOGLOBIN 13.1 g/dl (12.0-15.5); MEAN CORPUSCULAR HGB CONC 31.9 g/dl (32.0-36.5); MEAN CORPUSCULAR VOLUME 97.2 fl (80.0-96.0); PLATELET COUNT, AUTOMATED 323 10^3/uL (150-450); RED BLOOD COUNT 4.23 10^6/uL (4.00-5.40); WHITE BLOOD COUNT 7.6 10^3/uL (4.0-10.0)
[2023-03-23 10:48] LABS: HEMOGLOBIN A1c 5.6 % (4.0-6.0)
[2023-03-23 10:54] LABS: ALBUMIN 3.8 G/DL (3.2-5.2); ALKALINE PHOSPHATASE 72 U/L (46-116); ALT/SGPT 12 U/L (7.0-40); AST/SGOT 10 U/L (<34); BILIRUBIN,TOTAL 0.6 MG/DL (0.3-1.2); BLOOD UREA NITROGEN 14 MG/DL (9-23); CALCIUM LEVEL 10.2 MG/DL (8.3-10.6); CARBON DIOXIDE LEVEL 29 MMOL/L (20-31); CHLORIDE LEVEL 106 MMOL/L (98-107); CHOLESTEROL LEVEL 159 MG/DL (<200); CHOLESTEROL RISK RATIO 3.77 (<5); CREATININE FOR GFR 0.82 MG/DL (0.55-1.30); GLOMERULAR FILTRATION RATE > 60.0 (>32); GLUCOSE, FASTING 88 MG/DL (74-106); HDL CHOLESTEROL 42.1 MG/DL (>40); LDL CHOLESTEROL 89.5 MG/DL (<100); NON-HDL-C 116.9 MG/DL; POTASSIUM SERUM 4.1 MMOL/L (3.5-5.1); SODIUM LEVEL 138 MMOL/L (136-145); TOTAL PROTEIN 6.7 G/DL (5.7-8.2); TRIGLYCERIDES LEVEL 137 MG/DL (<150)
[2023-03-23 10:56] LABS: THYROID STIMULATING HORMONE 1.039 uIU/ML (0.55-4.78); TOTAL 25(OH) VITAMIN D 59.5 NG/ML (20.0-100.0)
== END ==
LOC: M LAB 09:22
PROVIDERS: ATTEND Family Medicine
DX: I10 Essential (primary) hypertension (principal); Z79.899 Other long term (current) drug therapy

== ENCOUNTER → 2024-01-27 | Outpatient (CLI) | payer MEDICARE ==
[~2024-01-27] MED LIST changes: -EFFE150C2 PO; +EFFE150C3 PO
[2024-01-27 10:31] LABS: HEMATOCRIT 41.7 % (36.0-47.0); HEMOGLOBIN 13.3 g/dl (12.0-15.5); MEAN CORPUSCULAR HEMOGLOBIN 30.9 pg (27.0-33.0); MEAN CORPUSCULAR HGB CONC 31.9 g/dl (32.0-36.5); MEAN CORPUSCULAR VOLUME 96.8 fl (80.0-96.0); PLATELET COUNT, AUTOMATED 364 10^3/uL (150-450); RED BLOOD COUNT 4.31 10^6/uL (4.00-5.40); WHITE BLOOD COUNT 7.4 10^3/uL (4.0-10.0)
[2024-01-27 10:38] LABS: HEMOGLOBIN A1c 5.6 % (4.0-6.0)
[2024-01-27 11:01] LABS: ALBUMIN 3.6 G/DL (3.2-5.2); BILIRUBIN,TOTAL 0.4 MG/DL (0.3-1.2); CALCIUM LEVEL 9.7 MG/DL (8.3-10.6); CHOLESTEROL RISK RATIO 7.59 (<5); CREATININE FOR GFR 0.96 MG/DL (0.55-1.30); GLOMERULAR FILTRATION RATE 59.4 (>32); HDL CHOLESTEROL 38.2 MG/DL (>40); NON-HDL-C 251.8 MG/DL; PERCENT SATURATION 30.4 % (13.2-45.0); TOTAL PROTEIN 6.6 G/DL (5.7-8.2)
[2024-01-27 11:03] LABS: THYROID STIMULATING HORMONE 1.825 uIU/ML (0.55-4.78)
== END ==
LOC: M LAB 09:32
PROVIDERS: ATTEND Family Medicine
DX: D64.9 Anemia, unspecified (principal); E03.9 Hypothyroidism, unspecified; R53.83 Other fatigue; Z79.899 Other long term (current) drug therapy

== ENCOUNTER → 2024-12-05 | Outpatient (CLI) | payer MEDICARE | LOC: M WHC 10:18 | PROVIDERS: ATTEND Family Medicine | DX: Z12.31 Encounter for screening mammogram for malignant neoplasm of breast (principal) ==

== ENCOUNTER → 2025-01-26 | Outpatient (CLI) | payer MEDICARE | LOC: M RAD 14:21 | PROVIDERS: ATTEND Student in an Organized Health Care Education/Training Program | DX: S83.203A Other tear of unspecified meniscus, current injury, right knee, initial encounter (principal); M17.11 Unilateral primary osteoarthritis, right knee; M71.21 Synovial cyst of popliteal space [Baker], right knee ==